=== PATIENT | female | born 1955 | race Caucasian/White ===

== ENCOUNTER 2022-03-31 16:18 | Inpatient (IN) | payer MEDICARE, OTHER ==
[2022-03-31] MEDS ORDERED: Adenocard IV 6 MG/2 ML IV ONE (16:50)
[2022-03-31] MEDS ORDERED: Sodium Chloride 0.9% 1000 ML 1,000 ML ONE (16:50)
[2022-03-31] MEDS ORDERED: Zofran 4 MG/2 ML VIAL ONE (16:50)
[2022-03-31] MEDS ORDERED: BABY ASPIRIN 81 MG CHEW PO ONE (17:06)
[2022-03-31] MEDS ORDERED: Sodium Chloride 0.9% 1000 ML 1,000 ML IV STA (17:06)
[2022-03-31] MEDS ORDERED: Zofran 4 MG/2 ML VIAL IV ONE (17:06)
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
[2022-03-31 17:35] LABS: Absolute Neutrophil Ct (ANC) 3.91 x10^3/uL (1.4-6.9); Basophil (Absolute #) 0.02 x10^3/uL (0-0.4); Eosinophil % 0.5 % (0.00-5.0); Eosinophil (Absolute #) 0.03 x10^3/uL (0-0.5); Hemoglobin 13.2 g/dL (12.0-16.0); Lymphocyte (Absolute #) 1.48 x10^3/uL (1.0-4.6); Lymphocytes % 24.4 % (24.0-44.0); Mean Cell Volume 96.1 fL (78-100); Mean Corpuscular Hemoglobin 30.2 pg (26-32); Mean Corpuscular Hgb Concent. 31.4 g/dL (32-36); Mean Platelet Volume 10.4 fL (7.5-11.0); Monocyte (Absolute #) 0.61 x10^3/uL (0.0-1.3); Neutrophil % 64.5 % (36.0-66.0); Platelet Count 255 x10^3/uL (150-450); Red Blood Count 4.37 x10^6/uL (4.1-5.4); Red Cell Distribution Width 12.9 % (11.5-14.0); White Blood Count 6.1 x10^3/uL (4.0-10.5)
[2022-03-31] MEDS ORDERED: ROCEPHIN 2 Gm-D5w 50ML BAG** 2 G/50 ML IVPB IV STA (17:45)
[2022-03-31] MEDS ORDERED: Zithromax 500 MG/ 250 ML NaCl Premix 500 MG/250 ML IVPB IV STA (17:45)
[2022-03-31] MEDS ORDERED: ROCEPHIN 2 Gm-D5w 50ML BAG** 2 G/50 ML IVPB IV ONE (17:48)
[2022-03-31 17:55] LABS: INR 0.98 (0.8-3.0); PROTIME 10.4 SECONDS (9.4-12.5); PTT 28.5 SECONDS (25.1-36.5)
--- NOTE | 2022-03-31 18:05 | XRAY ---
Indication: Palpitations. Comparison: None Portable chest inflated and clear. Heart and mediastinal structures within normal limits. Bony thorax intact with mild osteopenia and degenerative changes. Impression: Nonacute chest with chronic bony findings.
[2022-03-31 18:11] LABS: INFLUENZA B NEGATIVE (NEGATIVE); RESPIRATORY SYNCTIAL VIRUS NEGATIVE (Negative); SARS-CoV-2 Xpert Express NEGATIVE (NEGATIVE)
[2022-03-31 18:18] LABS: INFLUENZA A POSITIVE (NEGATIVE)
[2022-03-31] MEDS ORDERED: Tamiflu 75MG Capsule PO ONE ×2 (18:20→18:26)
[2022-03-31] MEDS ORDERED: Zithromax 500 MG/ 250 ML NaCl Premix 500 MG/250 ML IVPB IV ONE (18:20)
[2022-03-31 18:27] LABS: ALBUMIN 4.4 g/dL (3.5-5.0); ANION GAP 18.9 MEQ/L (5-15); BILIRUBIN,TOTAL 0.7 mg/dL (0.2-1.3); Calcium 9.1 mg/dL (8.4-10.2); Creatinine 1 1.39 mg/dL (0.52-1.04); Potassium 5.1 mmol/L (3.5-5.1); Total Protein 7.6 g/dL (6.3-8.2)
[2022-03-31 18:48] LABS: Appearance CLEAR (CLEAR); Bilirubin NEGATIVE (NEGATIVE); Dipstick done @ ? MAIN LAB; Glucose 250 mg/dL (NEGATIVE); Ketones MODERATE-40 (NEGATIVE); Nitrite NEGATIVE (NEGATIVE); Ph 5.5 (5-6); Protein,Urine Dip TRACE (Negative); RBC NEGATIVE Ery/ul (0-5); Specific Gravity 1.025 (1.005-1.025); Urobilinogen 0.2 mg/dL (0-1)
[2022-03-31 18:51] LABS: Mucus SLIGHT /HPF (NEGATIVE)
[2022-03-31] MEDS ORDERED: DUONEB 0.5-3 MG/3 ml Neb IH ONE ×2 (18:52→20:18)
[2022-03-31 18:53] LABS: Urine Cultured Indicated? NO
[2022-03-31 20:39] LABS: VBG CARBOXYHEMOGLOBIN 4.2 % T HGB (0.0-6.9); VBG HEMOGLOBIN 13.5; VBG O2 SATURATION 85.3 (95-100); VBG POTASSIUM 4.3 (3.5-5.1); VBG pH 7.46 (7.32-7.42)
[2022-03-31] MEDS ORDERED: TYLENOL 325 MG PO PRN (20:54)
[2022-03-31] MEDS ORDERED: Zofran 4 MG/2 ML VIAL IV PRN (20:54)
[2022-03-31] MEDS ORDERED: Sodium Chloride 0.9% W/ 20 mEq KCl/LITER 1,000 ML IV SCH (20:54)
[2022-03-31] MEDS ORDERED: DUONEB 0.5-3 MG/3 ml Neb IH SCH (20:54)
[2022-03-31] MEDS ORDERED: DUONEB 0.5-3 MG/3 ml Neb IH PRN (22:33)
[2022-03-31] MEDS: Sodium Chloride 0.9% 1000 ML 1,000 ML IV SCH (23:18)
[2022-03-31] MEDS ORDERED: Naprosyn 500 MG PO ONE (23:30)
[2022-03-31] MEDS ORDERED: Zocor 10MG PO ONE (23:30)
[2022-03-31] MEDS ORDERED: Toprol Xl 50 MG PO ONE (23:30)
[2022-04-01] MEDS ORDERED: DUONEB 0.5-3 MG/3 ml Neb IH SCH (01:00)
[2022-04-01 02:24] LABS: Absolute Neutrophil Ct (ANC) 1.76 x10^3/uL (1.4-6.9); Basophil (Absolute #) 0.01 x10^3/uL (0-0.4); Eosinophil (Absolute #) 0 x10^3/uL (0-0.5); Hematocrit 35.7 % (35-47); Hemoglobin 11.5 g/dL (12.0-16.0); Lymphocyte (Absolute #) 1.31 x10^3/uL (1.0-4.6); Lymphocytes % 37.1 % (24.0-44.0); Mean Cell Volume 94.2 fL (78-100); Mean Corpuscular Hemoglobin 30.3 pg (26-32); Mean Corpuscular Hgb Concent. 32.2 g/dL (32-36); Mean Platelet Volume 9.6 fL (7.5-11.0); Monocyte (Absolute #) 0.45 x10^3/uL (0.0-1.3); Monocytes % 12.7 % (0.0-12.0); Neutrophil % 49.9 % (36.0-66.0); Platelet Count 200 x10^3/uL (150-450); Red Blood Count 3.79 x10^6/uL (4.1-5.4); Red Cell Distribution Width 12.9 % (11.5-14.0); White Blood Count 3.5 x10^3/uL (4.0-10.5)
[2022-04-01 02:35] LABS: ALBUMIN 3.6 g/dL (3.5-5.0); ANION GAP 10.8 MEQ/L (5-15); BILIRUBIN,TOTAL 0.2 mg/dL (0.2-1.3); Calcium 7.8 mg/dL (8.4-10.2); Creatinine 1 1.1 mg/dL (0.52-1.04); EST GLOMERULAR FILTRATION RATE 52.3 ML/MIN; Potassium 3.8 mmol/L (3.5-5.1); Total Protein 6.5 g/dL (6.3-8.2)
--- NOTE | 2022-04-01 08:50 | XRAY ---
Indication: Hypoxia, palpitations, and elevated d-dimer. Multiple contiguous axial images obtained through the chest using 100 cc Isovue 370 contrast and PE protocol. Comparison: None Good opacification of the pulmonary arteries to includes the lobar and segmental branches. No pulmonary embolus. Heart is not enlarged. Aorta is normal in course and caliber. No pathologic mediastinal/hilar lymphadenopathy. Lungs demonstrates mild bilateral dependent atelectasis and bibasilar fibrosis/scarring. No suspicious pulmonary mass, infiltrate, effusion, or pneumothorax. Bony thorax intact with osteopenia and flowing osteophytes of the spine. Limited upper abdomen demonstrates fatty liver. Impression: 1. Negative pulmonary embolus. No acute cardiopulmonary abnormalities. 2. Incidental bibasilar fibrosis/scarring, chronic bony findings, and fatty liver. Comment: Preliminary interpretation made by [facility]. No critical discrepancy.
[2022-04-01] MEDS: ROCEPHIN 1 Gm-D5w 50 ml Bag** 1 G/50 ML IVPB IV SCH (10:48)
[2022-04-01] MEDS: PROTONIX 40 MG IV IV SCH (10:48)
[2022-04-01] MEDS ORDERED: Singulair 10 MG PO PRN (14:28)
[2022-04-01] MEDS ORDERED: NON-FORMULARY ITEM (Semaglutide [Ozempic] 1 MG/0.75 ML Pen.Injctr) SQ SCH (14:30)
[2022-04-01] MEDS ORDERED: MEDICATION INTERVENTION MC SCH (14:45)
[2022-04-01] MEDS: HUMALOG SQ PRN (16:29)
[2022-04-01] MEDS: Glucophage 500 MG PO SCH (16:29)
[2022-04-01] MEDS: Zocor 10MG PO SCH (19:55)
[2022-04-01] MEDS: Zithromax 500 MG/ 250 ML NaCl Premix 500 MG/250 ML IVPB IV SCH (19:55)
[2022-04-01] MEDS: Toprol Xl 50 MG PO SCH (19:55)
[2022-04-01] MEDS: Naprosyn 500 MG PO SCH (19:55)
[2022-04-01] MEDS: Sodium Chloride 0.9% 1000 ML 1,000 ML IV SCH (20:00)
[2022-04-01] MEDS ORDERED: NAPROXEN SODIUM 220 MG PO SCH (22:00)
[2022-04-02] MEDS: Sodium Chloride 0.9% 1000 ML 1,000 ML IV SCH (08:28)
[2022-04-02] MEDS: Glucophage 500 MG PO SCH ×2 (08:28→21:31)
[2022-04-02] MEDS: PROTONIX 40 MG IV IV SCH (11:03)
[2022-04-02] MEDS: ROCEPHIN 1 Gm-D5w 50 ml Bag** 1 G/50 ML IVPB IV SCH (11:08)
[2022-04-02] MEDS: Actos 30 MG PO SCH (11:08)
--- NOTE | 2022-04-02 13:50 | XRAY ---
Indication: Supraventricular tachycardia. Pneumonia. Respiratory failure. Comparison: March 31, 2022 Portable chest demonstrates new minimal bibasilar subsegmental atelectasis. Remaining heart and lungs unremarkable. Bony thorax intact again with osteopenia and degenerative changes.
[2022-04-02] MEDS: NORVASC 5 MG PO SCH (18:26)
--- NOTE | 2022-04-02 19:09 | PCM.NOTE ---
Date and Time: 04/01/22 1600 Subjective Assessment: Patient was admitted over the weekend with Influenza A and elevated troponins.States feeling better no longer weak or dizzy. O2 weaning no dyspnea when up to bathroom. Denies chest pain or palpitations. Appetite is ok. Daughter is at the bedside and very supportive. Objective Exam General Appearance: no apparent distress Neurologic Exam: alert, oriented x 3, cooperative, normal mood/affect Eye Exam: eyes nml inspection Ears, Nose, Throat Exam: moist mucous membranes Neck Exam: normal inspection Respiratory Exam: wheezing (mid bilateral) Cardiovascular Exam: regular rate/rhythm Extremity Exam: normal inspection OBJECTIVE DATA Vital Signs: Vital Signs - 24 hr Temp Pulse Resp BP Pulse Ox 04/02/22 16:00 97.0 F 84 18 139/69 95 04/02/22 14:33 76 14 97 04/02/22 12:00 98.1 F 78 18 149/78 98 04/02/22 08:00 98.0 F 69 17 145/76 97 04/02/22 04:00 98.1 F 70 17 129/67 95 04/01/22 22:55 98.1 F 72 16 133/72 99 04/01/22 19:37 98.1 F 73 16 130/67 97 Pain Assessment - Last Documented Pain Intensity 0 Intake and Output: Intake & Output 03/31/22 04/01/22 04/02/22 04/03/22 11:59 11:59 11:59 11:59 Intake Total 1183 3156 1628 Output Total 1250 Balance -67 3156 1628 Weight 86.183 kg 86.183 kg 86.183 kg Lab Results: Lab Results-Last 24 Hours 04/01/22 04/02/22 04/02/22 Range/Units 21:48 07:26 11:29 POC Glucometer 131 H 94 171 H (74 to 106) mg/dL Hemoglobin A1c (4.5-6.0) % Troponin I (0.000-0.034) ng/mL 04/02/22 04/02/22 04/02/22 Range/Units 11:35 13:25 15:28 POC Glucometer (74 to 106) mg/dL Hemoglobin A1c 5.47 (4.5-6.0) % Troponin I 0.068 H* 0.056 H* (0.000-0.034) ng/mL 04/02/22 Range/Units 16:38 POC Glucometer 127 H (74 to 106) mg/dL Hemoglobin A1c (4.5-6.0) % Troponin I (0.000-0.034) ng/mL Radiology Exams: Radiology Procedures Category Date Time Status CHEST 1 VIEW (PORTABLE) Urgent Exams 04/02/22 13:25 Completed CHEST WITH CONTRAST [CT] Stat Exams 03/31/22 18:09 Completed ECHO W/2D AND DOPPLER [US] Routine Exams 04/02/22 14:28 Taken Multi-Disciplinary Progress Notes: Multi-Disciplinary Progress Notes 04/02/22 12:04 Case Management Note by Cortney Frankel S/W PATIENT'S DAUGHTER IN ROOM WITH PATIENT VIA PHONE- SHE CONTINUES TO DENY ANY NEW NEEDS FOR PATIENT AT DC. SHE REPORTS SHE IS ABLE TO STAY WITH PATIENT AT TIME OF DC IF NEEDED. Initialized on 04/02/22 12:04 - END OF NOTE Assessment/Plan (1) Influenza A Current Visit: Yes Status: Acute Assessment & Plan: improved,O2 monitored by RT ,weaning Code(s): J10.1 - FLU DUE TO OTH IDENT INFLUENZA VIRUS W OTH RESP MANIFEST (2) Respiratory failure Current Visit: Yes Status: Resolved Qualifiers: Chronicity: acute Respiratory failure complication: hypoxia Qualified Code(s): J96.01 - Acute respiratory failure with hypoxia Code(s): J96.90 - RESPIRATORY FAILURE, UNSP, UNSP W HYPOXIA OR HYPERCAPNIA (3) Elevated troponin Current Visit: Yes Status: Acute Assessment & Plan: asymptomatic and EKG NSR,monitor Code(s): R77.8 - OTHER SPECIFIED ABNORMALITIES OF PLASMA PROTEINS (4) SVT (supraventricular tachycardia) Current Visit: Yes Status: Resolved Code(s): I47.1 - SUPRAVENTRICULAR TACHYCARDIA
[2022-04-02] MEDS: Zithromax 500 MG/ 250 ML NaCl Premix 500 MG/250 ML IVPB IV SCH (21:30)
[2022-04-02] MEDS: Zocor 10MG PO SCH (21:31)
[2022-04-02] MEDS: Naprosyn 500 MG PO SCH (21:31)
[2022-04-02] MEDS: Toprol Xl 50 MG PO SCH (21:31)
[2022-04-02] MEDS: HUMALOG SQ PRN (21:36)
[2022-04-03] MEDS: Sodium Chloride 0.9% 1000 ML 1,000 ML IV SCH (00:01)
[2022-04-03 07:28] VITALS: BP 142/72; PULSE 71
[2022-04-03 07:30] VITALS: O2SAT 95
[2022-04-03] MEDS: Glucophage 500 MG PO SCH (10:05)
[2022-04-03] MEDS: Actos 30 MG PO SCH (10:05)
[2022-04-03] MEDS: PROTONIX 40 MG IV IV SCH (10:06)
[2022-04-03] MEDS: NORVASC 5 MG PO SCH (10:06)
[2022-04-03] MEDS: ROCEPHIN 1 Gm-D5w 50 ml Bag** 1 G/50 ML IVPB IV SCH (10:07)
--- NOTE | 2022-04-10 10:02 | ECHO ---
DATE OF PROCEDURE: 04/02/2022 CLINICAL INFORMATION: Supraventricular tachycardia, pneumonia and respiratory failure. The M-mode 2D, and Doppler echocardiogram including color flow Doppler have limited apical views due to body habitus and dense breast tissue. The left ventricle is normal in size. There is no thrombus present. There is moderate asymmetric left ventricular hypertrophy involving the septum. No thrombus present. There is normal contractility of the left ventricle. The ejection fraction is calculated to be 58%. The right ventricle is grossly normal. The left atrium is borderline dilated. The interatrial septum is intact. The right atrium is normal. The aortic valve opens well. There is no aortic regurgitation. There is mitral valve leaflet thickening associated with a trace amount of mitral regurgitation. The tricuspid valve is normal. The pulmonic valve is not well visualized. The aortic root is normal. There is no pericardial effusion present. IMPRESSION: 1) NORMAL CONTRACTILITY OF THE LEFT VENTRICLE. 2) MODERATE ASYMMETRIC LEFT VENTRICULAR HYPERTROPHY. 3) TRACE AMOUNT OF MITRAL REGURGITATION. 4) BORDERLINE LEFT ATRIAL DILATATION.
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
--- NOTE | 2022-04-15 18:47 | PCM.DS ---
Discharge Summary Date of Admission: 03/31/22 20:50 Date of Discharge: 04/03/2022 Admitting Physician: YOHAN CABA Consults: Consults on Case 04/02/22 13:08 Consult Cardiology ROUTINE Primary Care Provider: JALIL HOWE Allergies Allergies acetaminophen [From Darvocet-N] Allergy (Verified 03/31/22 23:30) bee venom protein (honey bee) Allergy (Verified 03/31/22 23:30) propoxyphene [From Darvocet-N] Allergy (Verified 03/31/22 23:30) Hospital Summary - Hospital Course Hospital Course: Pt. admitted after presented to ER with SVT and sob feeling, pt. noted to be influenza positive and also have pneumonia. Pt. troponin elevation trended down, cardiology consulted and treatment for pneumonia improved her oxygen saturation but was still in need of short term oxygen upon discharge. Pt. would not stay in hospital any longer. - Vitals & Intake/Output Vital Signs: Vital Signs Temperature 98.0 F 04/03/22 07:27 Pulse Rate 71 04/03/22 07:27 Respiratory Rate 17 04/03/22 07:27 Blood Pressure 142/72 04/03/22 07:27 O2 Sat by Pulse Oximetry 95 04/03/22 07:29 - Lab Result Diagrams: 04/01/22 02:10 04/01/22 02:10 Micro Results-Entire Visit: Microbiology 03/31/22 17:20 Blood Culture Gram Stain - Final Blood Not Reportable Blood Culture - Final NO GROWTH 03/31/22 16:45 Blood Culture Gram Stain - Final Blood Not Reportable Blood Culture - Final NO GROWTH - Procedures and Test Procedures and Tests throughout Hospitalization: Therapy Orders & Screens 03/31/22 20:41 Respiratory Therapy Assessment DAILY Comment: 03/31/22 20:54 Oxygen Nasal Cannula 2 lpm Comment: 04/01/22 12:15 Incentive Spirometry TID Comment: Diagnosis: Influenza A, pneumonia, KALLI, respiratory failure with hypoxia 04/02/22 12:06 RT Miscellaneous Order ROUTINE Comment: Physician Instructions: WEAN O2 TOLERATED Reason For Exam: Diagnosis: Influenza A, pneumonia, KALLI, respiratory failure with hypoxia 04/03/22 09:30 Qualify for Home Oxygen TODAY Comment: Diagnosis: Influenza A, pneumonia, KALLI, respiratory failure with hypoxia Discharge Exam General Appearance: no apparent distress, alert Neurologic Exam: alert, oriented x 3, cooperative, normal mood/affect, nml cerebellar function, sensation nml, No motor deficits Eye Exam: PERRL, EOMI, eyes nml inspection Ears, Nose, Throat Exam: normal ENT inspection, pharynx normal, moist mucous membranes Neck Exam: normal inspection, non-tender, supple, full range of motion Respiratory Exam: normal breath sounds, lungs clear, No respiratory distress Cardiovascular Exam: regular rate/rhythm, normal heart sounds Gastrointestinal/Abdomen Exam: soft, No tenderness, No mass Pelvic Exam: deferred Rectal Exam: deferred Back Exam: normal inspection, normal range of motion, No CVA tenderness, No vertebral tenderness Extremity Exam: normal inspection, normal range of motion Skin Exam: normal color, warm, dry Final Diagnosis/Problem List - Final Discharge Diagnosis/Problem (1) Elevated troponin Status: Acute Code(s): R77.8 - OTHER SPECIFIED ABNORMALITIES OF PLASMA PROTEINS (2) Influenza A Status: Acute Code(s): J10.1 - FLU DUE TO OTH IDENT INFLUENZA VIRUS W OTH RESP MANIFEST (3) Pneumonia Status: Acute Code(s): J18.9 - PNEUMONIA, UNSPECIFIED ORGANISM (4) SVT (supraventricular tachycardia) Status: Resolved Code(s): I47.1 - SUPRAVENTRICULAR TACHYCARDIA - Discharge Discharge Date: 04/03/22 Disposition: Home, Self-Care Condition: Stable Prescriptions: New Albuterol/Ipratropium 3ml Neb* [DUONEB 0.5-3 MG/3 ml Neb] 3 ml IH Q4HPRN PRN 30 Days #180 PRN Reason: Shortness Of Breath Amox Tr/Potass Clav. 875 mg [Augmentin 875-125 Tablet] 1 each PO BID 10 Days #20 tablet Oseltamivir 75 mg [Tamiflu 75MG Capsule] 75 mg PO DAILY 2 Days #2 cap Azithromycin 250 mg [Zithromax 250 MG TABLET] 250 mg PO DAILY 5 Days #6 tablet Continue Montelukast Sodium 10 mg [Singulair 10 MG] 10 mg PO TID PRN PRN PRN Reason: Allergies Metformin HCl 500 mg [Glucophage 500 MG] 1,000 mg PO BIDWM Pioglitazone 30 mg [Actos 30 MG] 45 mg PO DAILY Semaglutide [Ozempic] 2 mg SQ WEEKLY Simvastatin 10 mg [Zocor 10MG] 10 mg PO QHS Naproxen Sodium [Aleve] 440 mg PO QHS Metoprolol Succinate 50 mg PO QHS Glimepiride 2 mg [Amaryl 2 MG] 2 mg PO DAILY Amlodipine Besylate 5 mg [Norvasc 5 mg] 5 mg PO DAILY Instructions: Flu, Adult (DC), Supraventricular Tachycardia (SVT) Additional Instructions: ORDER FOR NEB MACHINE SUBMITTED TO [facility]- THEY WILL DELIVER THIS TO YOU. THEIR PHONE NUMBER IS [phone] Follow up with: JALIL HOWE MD [Primary Care Provider] - 04/11/22 9:45 am Ganesh Ruelas MD [CONSULTING PHYSICIAN] - 04/16/22 9:30 am Forms: Discharge Instructions
== END 2022-04-03 11:06 | disposition home or self-care (01) | DRG 947 ==
LOC: ED 16:18 → ICU 20:50 → MED SURG 04-01 09:18
PROVIDERS: ADMIT General Practice; ATTEND Family Medicine
DX: R77.8 Other specified abnormalities of plasma proteins (principal); J10.1 Influenza due to other identified influenza virus with other respiratory manifestations; J18.9 Pneumonia, unspecified organism; J96.01 Acute respiratory failure with hypoxia; I47.1 Supraventricular tachycardia; I48.91 Unspecified atrial fibrillation; I10 Essential (primary) hypertension; E11.9 Type 2 diabetes mellitus without complications; Z79.899 Other long term (current) drug therapy; Z20.828 Contact with and (suspected) exposure to other viral communicable diseases
CPT/HCPCS: 0241U; 36000; 36415; 71045; 71260; 80053; 81015; 82550; 82805; 82947; 83036; 83605; 83880; 84145; 84484; 85025; 85379; 85610; 85730; 87040; 93005; 93041; 93306; 94640; 94762; 96360; 96365; 96374; 99285; 99291; Q3014; J0153; J0456; J0696; J1817; J2405; A9270-GY

== ENCOUNTER 2022-07-29 09:33 | Day surgery (SDC) | payer MEDICARE, OTHER ==
--- NOTE | 2022-07-29 08:48 | HP ---
DATE OF SURGERY: 07/29/2022 HISTORY OF PRESENT ILLNESS: The patient is a 67-year-old had some anemia occult positive. She had a hemoglobin of 6.7 requiring transfusion. Last endoscopy few years ago. No gross bloody stools. No change in bowel movements. No new pain. Family history brother had rectal cancer. PAST MEDICAL HISTORY: Hypertension, diabetes mellitus type II, hyperlipidemia. PAST SURGICAL HISTORY: Hysterectomy. Appendectomy. MEDICATIONS: Aspirin, vitamin D3, vitamin B12, aspirin, metoprolol, amlodipine, Actos, simvastatin, metformin. ALLERGIES: DARVOCET. JARDIANCE. FAMILY HISTORY: Brother had rectal cancer. Heart disease. Diabetes. SOCIAL HISTORY: No smoking or alcohol abuse. REVIEW OF SYSTEMS: Fourteen systems reviewed. No chest pain or palpitations. Other systems negative or noncontributory as above and per preadmission questionnaire. PHYSICAL EXAMINATION: Height 5'3". Weight 198. BMI 35. GENERAL: No acute distress. HEENT: Sclerae nonicteric. EOMI. Oropharynx mucous membranes moist. NECK: No JVD. CHEST: Equal excursion, nonlabored breathing. CVS: Regular rate and rhythm. ABDOMEN: Soft, nontender. EXTREMITIES: No significant edema. NEURO: Alert, oriented, moving extremities symmetrically. RECTAL: Deferred timed to endoscopy exam. PSYCH: Appropriate mood and affect. SKIN: Dry. IMPRESSION: Anemia of unclear etiology in need of EGD and colonoscopy. Shown the risk sheet and explained the procedure in detail including but not limited to bleeding or infection, risk of bowel injury or perforation, risk of missed or nondiagnosis or incomplete exam possibly requiring barium enema, other studies or procedures. General risk of anesthesia or sedation, risk of bowel prep but not limited to possibly requiring referrals or studies. Consent obtained. Will proceed with outpatient EGD and colonoscopy under MAC anesthesia.
[2022-07-29] MEDS ORDERED: Lactated Ringers 1,000 ML IV SCH (10:00)
[2022-07-29] MEDS ORDERED: Lactated Ringers 1,000 ML IV ONE (10:15)
[2022-07-29] MEDS ORDERED: Xylocaine-Mpf 2% 5 Ml Vial ONE (12:33)
[2022-07-29] MEDS ORDERED: DIPRIVAN 200 MG/20 ML IV ONE ×2 (12:33→12:56)
[2022-07-29 13:07] VITALS: BP 137/53; PULSE 60; O2SAT 98
--- NOTE | 2022-07-29 14:19 | OP ---
SURGERY DATE/TIME: 07/29/2022 1134 PREOPERATIVE DIAGNOSIS: History of anemia, history of brother with rectal cancer, need for upper and lower endoscopy. POSTOPERATIVE DIAGNOSES: 1) Moderate to severe deep erosive esophagitis (history of recent hemorrhage). 2) Small early polyp versus hyperplastic lesion sigmoid colon x5. 3) Good bowel prep. PROCEDURES: 1) EGD with cold biopsy of antrum for Helicobacter pylori. 2) Cold biopsy of margin in the deep to mid body gastric erosion. 3) Colonoscopy to cecum with hot biopsy polypectomy early polyp versus hyperplastic lesion sigmoid colon x5. SURGEON: Dr. Bashir Alvarado. HOUSING INSPECTORS: Syeda Fair, Medical Student III. ANESTHESIA: MAC. ESTIMATED BLOOD LOSS: Minimal. INDICATIONS: As noted above. Risks and benefits explained in detail and not limited to and consent obtained. DESCRIPTION OF PROCEDURE AND FINDINGS: The patient is taken to the endoscopy room. MAC anesthesia introduced. After official time out and no disagreement with planned procedure, bite block positioned. Video gastroscope easily passed down the esophagus to the patent pylorus to the third portion of the duodenum. Third, second and first portions of duodenum grossly unremarkable. No signs of any ulcers. Scope passed in the stomach. She had some deep erosive gastritis with a little bit of blood in the deep erosion definitely a possible source of some anemia. No current active bleeding. Cold biopsy taken of the antrum for Helicobacter pylori. Cold biopsy taken in the margin of erosion in the mid gastric body. There was no gross evidence of any mass. There was nothing large enough to call a true ulcer. On retroflex the gastroesophageal junction fairly snug against the scope. The scope is straightened and pulled back to the gastroesophageal junction. Esophagus appeared fairly unremarkable. Duodenum fairly unremarkable. The scope is withdrawn. The patient tolerated this part of the procedure well. Attention is then turned to colonoscopy. Digital rectal exam did not reveal any rectal masses. She did have some small internal hemorrhoids. Video colonoscope inserted and passed up through the tortuous sigmoid, descending, transverse, ascending colon around to the cecum. With external pressure scope passed to the cecum. Appendiceal orifice and valve well visualized and photo documented. Prep overall was good. The scope is carefully withdrawn over the next nine minutes. No signs of any large polyps, masses or obstructing lesions. There were five small 1.5 to 2 mm small, early polyps versus hyperplastic lesion in the sigmoid colon removed with hot biopsy polypectomy with brief bursts of cautery. Good hemostasis noted. Otherwise, she had some small internal hemorrhoids. There were no signs of any large polyps, masses or obstructing lesions. No obvious source of any lower GI source of anemia. It seems that her anemia is related to erosive gastritis. I will put her on some Protonix in the short term until her medical doctor decides to put her on longer term.
== END 2022-07-29 13:20 | disposition home or self-care (01) ==
LOC: SDC 09:33
PROVIDERS: ATTEND Surgery
DX: K29.70 Gastritis, unspecified, without bleeding (principal); K22.10 Ulcer of esophagus without bleeding; D64.9 Anemia, unspecified; E11.9 Type 2 diabetes mellitus without complications; Z80.0 Family history of malignant neoplasm of digestive organs; D12.5 Benign neoplasm of sigmoid colon; K64.8 Other hemorrhoids
CPT/HCPCS: 82947; 88305; J2704

== ENCOUNTER 2024-01-26 17:17 | Emergency (ER) | payer MEDICARE, OTHER ==
[2024-01-26] MEDS: BABY ASPIRIN 81 MG CHEW PO ONE (17:36)
[2024-01-26] MEDS ORDERED: BABY ASPIRIN 81 MG CHEW ONE (17:36)
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
[2024-01-26 17:50] LABS: Absolute Neutrophil Ct (ANC) 4.12 x10^3/uL (1.56-6.13); BASOPHIL % 0.2 % (0.1-1.2); Basophil (Absolute #) 0.01 x10^3/uL (0.01-0.08); Eosinophil % 3.2 % (0.7-5.8); Eosinophil (Absolute #) 0.19 x10^3/uL (0.04-0.36); Hematocrit 37.9 % (34.1-44.9); Hemoglobin 12.4 g/dL (11.2-15.7); IMMATURE GRAN # 0.01 x10^3u/L (0.001-0.031); IMMATURE GRAN % 0.2 % (0.001-0.429); Lymphocytes % 20.4 % (19.3-51.7); Mean Cell Volume 92.4 fL (79.4-94.8); Mean Corpuscular Hemoglobin 30.2 pg (25.6-32.2); Mean Corpuscular Hgb Concent. 32.7 g/dL (32.2-35.5); Mean Platelet Volume 10.2 fL (9.4-12.3); Monocyte (Absolute #) 0.36 x10^3/uL (0.24-0.86); Monocytes % 6.1 % (4.7-12.5); Neutrophil % 69.9 % (34.0-71.1); Platelet Count 198 x10^3/uL (182-369); Red Cell Distribution Width 12.6 % (11.7-14.4); White Blood Count 5.9 x10^3/uL (3.98-10.04)
[2024-01-26 18:13] LABS: ALBUMIN 3.9 g/dL (3.5-5.0); ANION GAP 16.4 MEQ/L (5-15); BILIRUBIN,TOTAL 0.7 mg/dL (0.2-1.3); Calcium 9.2 mg/dL (8.4-10.2); Creatinine 1 1.19 mg/dL (0.52-1.04); EST GLOMERULAR FILTRATION RATE 48.9 ML/MIN; INR 0.98 (0.8-3.0); PROTIME 10.7 SECONDS (9.4-12.5); PTT 26.4 SECONDS (25.1-36.5); Potassium 4.1 mmol/L (3.5-5.1); Total Protein 6.6 g/dL (6.3-8.2)
[2024-01-26 18:22] LABS: D-DIMER QUANTITATIVE 0.73 mg/L (0.0-0.50)
[2024-01-26] MEDS ORDERED: Sodium Chloride 0.9% 250 ML 250 ML IV ONE (21:05)
[2024-01-26] MEDS: Sodium Chloride 0.9% 250 ML 250 ML IV SCH (21:08)
[2024-01-26] MEDS ORDERED: HEPARIN 5000 UNITS/0.5 ML (HIGH RISK MED) ONE (22:05)
[2024-01-26] MEDS: HEPARIN 5000 UNITS/0.5 ML (HIGH RISK MED) IV ONE (22:06)
[2024-01-26 23:04] VITALS: BP 129/74; PULSE 84; RESP 20; O2SAT 96
--- NOTE | 2024-01-27 08:50 | XRAY ---
Indication: Pulmonary embolus. Elevated d-dimer. Multiple contiguous axial images obtained through the chest using 80 cc Isovue 370 contrast and PE protocol. Comparison: June 28, 2022 Good opacification pulmonary arteries to include the lobar and segmental branches. No pulmonary embolus. Heart not enlarged again with scattered coronary calcifications. Aorta minimally atherosclerotic without aneurysm/dissection. No pathologic mediastinal/hilar lymphadenopathy. Lungs again demonstrate minimal bibasilar subsegmental atelectasis/scarring. No suspicious pulmonary mass/nodule, infiltrate, or effusion. Bony thorax intact again with osteopenia, flowing osteophytes throughout spine, and old right 7 rib fracture. Limited upper abdomen again demonstrate fatty liver. Impression: 1. Again negative for pulmonary embolus. No new/acute cardiopulmonary abnormalities. 2. Chronic findings including atelectasis/scarring, chronic bony findings, and fatty liver.
--- NOTE | 2024-01-27 09:09 | XRAY ---
Indication: Chest pain. Comparison: June 28, 2022. Portable chest remains inflated and clear. Heart and mediastinal structures within normal limits. Bony thorax intact again with osteopenia and degenerative changes. No new/acute findings.
== END 2024-01-26 23:19 | disposition short-term general hospital (02) ==
LOC: ED 17:17
DX: I21.4 Non-ST elevation (NSTEMI) myocardial infarction (principal); R07.9 Chest pain, unspecified; I10 Essential (primary) hypertension; E11.9 Type 2 diabetes mellitus without complications; Z79.84 Long term (current) use of oral hypoglycemic drugs; Z79.899 Other long term (current) drug therapy
CPT/HCPCS: 36000; 36415; 71045; 71260; 80053; 83880; 84484; 85025; 85379; 85610; 85730; 93005; 93041; 96374; 99285; J1644; A9270-GY

== ENCOUNTER 2024-03-01 10:32 | Emergency (ER) | payer MEDICARE, OTHER ==
[2024-03-01] MEDS ORDERED: Adenocard IV 6 MG/2 ML IV ONE ×2 (10:37)
[2024-03-01 10:54] VITALS: TEMP 98.6
[2024-03-01] MEDS: Adenocard IV 6 MG/2 ML IV ONE (11:00)
[2024-03-01 11:06] LABS: Absolute Neutrophil Ct (ANC) 2.28 x10^3/uL (1.56-6.13); BASOPHIL % 0.5 % (0.1-1.2); Basophil (Absolute #) 0.02 x10^3/uL (0.01-0.08); Eosinophil % 5.8 % (0.7-5.8); Eosinophil (Absolute #) 0.25 x10^3/uL (0.04-0.36); Hematocrit 39.4 % (34.1-44.9); Hemoglobin 13.3 g/dL (11.2-15.7); IMMATURE GRAN # 0.01 x10^3u/L (0.001-0.031); IMMATURE GRAN % 0.2 % (0.001-0.429); Lymphocyte (Absolute #) 1.29 x10^3/uL (1.18-3.74); Lymphocytes % 29.9 % (19.3-51.7); Mean Cell Volume 92.7 fL (79.4-94.8); Mean Corpuscular Hemoglobin 31.3 pg (25.6-32.2); Mean Corpuscular Hgb Concent. 33.8 g/dL (32.2-35.5); Mean Platelet Volume 10.2 fL (9.4-12.3); Monocyte (Absolute #) 0.47 x10^3/uL (0.24-0.86); Monocytes % 10.9 % (4.7-12.5); Neutrophil % 52.7 % (34.0-71.1); Platelet Count 199 x10^3/uL (182-369); Red Blood Count 4.25 x10^6/uL (3.93-5.22); Red Cell Distribution Width 12.9 % (11.7-14.4); White Blood Count 4.3 x10^3/uL (3.98-10.04)
[2024-03-01 11:29] LABS: INR 0.93 (0.8-3.0); PROTIME 10.2 SECONDS (9.4-12.5)
[2024-03-01 11:31] LABS: ALBUMIN 3.9 g/dL (3.5-5.0); ANION GAP 16.1 MEQ/L (5-15); BILIRUBIN,TOTAL 0.6 mg/dL (0.2-1.3); Calcium 9.3 mg/dL (8.4-10.2); Creatinine 1 1.28 mg/dL (0.52-1.04); EST GLOMERULAR FILTRATION RATE 44.8 ML/MIN; MAGNESIUM 1.4 mg/dL (1.6-2.3); NT PRO BNPII 42.5 pg/mL (<300); Total Protein 6.7 g/dL (6.3-8.2)
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
[2024-03-01 11:45] LABS: D-DIMER QUANTITATIVE 0.95 mg/L (0.0-0.50)
[2024-03-01 12:16] LABS: Appearance Clear (Clear); Bacteria None Seen /HPF (None Seen); Bilirubin Negative (Negative); Blood Negative (Negative); Epithelial Cells None Seen /HPF (None Seen); Glucose, Urine Negative (Negative); Hyaline Casts NONE SEEN /LPF (0-2); Ketones Negative (Negative); Leukocyte Esterase Negative (Negative); Nitrite Negative (Negative); Ph 6.5 (4.6-8.0); Protein,Urine Dip Negative (Negative); RBC 0-2 /HPF (0-5); Urobilinogen 0.2 mg/dL (0.2); WBC 0-2 /HPF (0-5)
[2024-03-01] MEDS ORDERED: Sodium Chloride 0.9% 500 ML 500 ML IV ONE (14:08)
--- NOTE | 2024-03-01 14:09 | XRAY ---
Indication: Supraventricular tachycardia. Elevated d-dimer. Multiple contiguous axial images obtained through the chest using 100 cc Isovue 370 contrast and PE protocol. Comparison: March 31, 2022, June 28, 2022, and January 26, 2024 Good opacification of the pulmonary arteries including lobar and segmental branches. Again no pulmonary embolus. Heart not enlarged again with coronary calcifications. Aorta again minimally arteriosclerotic without aneurysm/dissection. No pathologic mediastinal/hilar lymphadenopathy. Lungs again demonstrates bilateral dependent atelectasis. No suspicious pulmonary mass/nodule, infiltrate, or effusion. Bony thorax intact again with osteopenia, flowing osteophytes of the spine, and old right 7 rib fracture. Limited upper abdomen again demonstrates fatty liver. Impression: Continued negative CT chest pulmonary embolus exam. Again incidental arteriosclerotic disease, chronic bony findings, and fatty liver. No new/acute abnormalities.
[2024-03-01] MEDS: Sodium Chloride 0.9% 500 ML 500 ML IV ONE (14:10)
[2024-03-01 14:19] VITALS: PULSE 78; RESP 16
[2024-03-01 14:39] VITALS: O2SAT 98
[2024-03-01 14:54] VITALS: BP 138/104
== END 2024-03-01 15:00 | disposition home or self-care (01) ==
LOC: ED 10:32
DX: I47.10 Supraventricular tachycardia, unspecified (principal); E78.5 Hyperlipidemia, unspecified; E11.9 Type 2 diabetes mellitus without complications; I10 Essential (primary) hypertension; Z79.84 Long term (current) use of oral hypoglycemic drugs; Z79.4 Long term (current) use of insulin; Z79.85 Long-term (current) use of injectable non-insulin antidiabetic drugs; Z79.02 Long term (current) use of antithrombotics/antiplatelets
CPT/HCPCS: 36000; 36415; 71260; 80053; 81001; 83735; 83880; 84484; 85025; 85379; 85610; 93005; 93041; 94760; 96374; 99284; 99285; 99291; J0153